=== PATIENT | female | born 2000 | race Two or more races ===

== ENCOUNTER 2019-05-12 12:56 | Emergency (ER) | payer OTHER, SELFPAY ==
[2019-05-12 13:06] VITALS: BP 117/77; PULSE 123; RESP 16; TEMP 38.2; O2SAT 100
--- NOTE | 2019-05-12 14:02 | ED.GENADULT ---
HPI - General Adult General Chief complaint: Upper Respiratory Infection Stated complaint: SORE THROAT/BODY ACHES/FEVER/CHILLS Time Seen by Provider: 05/12/19 14:02 Source: patient and RN notes reviewed Mode of arrival: ambulatory Limitations: no limitations History of Present Illness HPI narrative: This is a 18 years old female presented office for evaluation of flu symptoms since this morning. Symptom began last night with feverish and aching. She went to work this morning but she has to eave early because she does not felt well. Symptoms include sore throat, headache, and achy. She did not receive influenza vaccine. Denies sick contact. No treatment prior to arrival. Related Data Home Medications Medication Instructions Recorded Confirmed No Home Medications 05/12/19 05/12/19 Allergies Allergy/AdvReac Type Severity Reaction Status Date / Time No Known Allergies Allergy Unverified 05/12/19 13:04 Review of Systems Review of Systems: Narrative: CONSTITUTIONAL: Reports fever, chills, sweats. ENT: Denies ears pain CARDIOVASCULAR: Denies chest pain RESPIRATORY: Denies dyspnea, wheezing. Reports a little cough GASTROINTESTINAL: Denies abdominal pain, nausea, vomiting, diarrhea. GENITOURINARY: Denies urinary symptoms or discharge SKIN: Denies rash MUSCULOSKELETAL: Denies acute back pain NEUROLOGIC: Denies lightheaded. Reports headache PMFSH Social History Social History Smoking status: Never smoker Alcohol intake: never Comments At time of signature, I agree with nursing past medical, surgical, social and family history. There is no relevant family history pertinent to the presenting complaint. Exam Narrative: Exam Narrative: GENERAL: This is a well-nourished, well-developed patient, in no apparent distress. EARS: External ears normal, auditory canals clear and without drainage, TMs normal without perforation. Hearing grossly intact. NOSE: External nose normal with no obvious nasal discharge, nares without redness, no rhinorrhea. THROAT: Mucous membranes moist, posterior pharynx clear. NECK: Neck supple, non-tender without lymphadenopathy, masses or thyromegaly. CARDIOVASCULAR: Regular rate and rhythm without murmurs, gallops, or rubs. RESPIRATORY: Clear to auscultation. Breath sounds equal bilaterally. No wheezes, rales, or rhonchi. GASTROINTESTINAL: Abdomen soft, non-tender, nondistended. Bowel sounds are active. No hepato-splenomegaly, or palpable masses. No guarding. SKIN: warm, intact with no suspicious lesions or rash, good texture and turgor. NEURO: awake, alert, and oriented to person, place and time. There were no obvious focal neurologic abnormalities. Steady gait Stephenson Coma Scale Eye Opening: Spontaneous 4 Stephenson Coma Scale Motor: Obeys Commands 6 Stephenson Coma Scale Verbal: Oriented 5 Course Vital Signs Vital signs: Vital Signs Temperature 100.7 F H 05/12/19 13:06 Pulse Rate 123 H 05/12/19 13:06 Respiratory Rate 16 05/12/19 13:06 Blood Pressure 117/77 05/12/19 13:06 Pulse Oximetry 100 05/12/19 13:06 Temperature 100.7 F H 05/12/19 13:06 Pulse Rate 123 H 05/12/19 13:06 Respiratory Rate 16 05/12/19 13:06 Blood Pressure 117/77 05/12/19 13:06 Pulse Oximetry 100 05/12/19 13:06 Medical Decision Making MDM Narrative Medical decision making narrative: Discharge instructions reviewed with patient, as well as provided in writing per nursing staff. The instructions also include specific and strict return/GO TO THE ER as well as f/u information. All questions have been answered, and the patient and mother deny any further questions with discharge and discharge plan. Differential Diagnosis Differential Diagnosis: pneumonia, Allergic Rhinitis, Upper respiratory cough syndrome, Pharyngitis, Sinusitis, Bronchitis, otitis media, viral URI, Asthma/reactive airway disease, influenza Medical Records Medical
== END 2019-05-12 14:12 | disposition home or self-care (01) ==
PROVIDERS: Emergency Provider Nurse Practitioner; PCP Pediatrics
DX: J06.9 Acute upper respiratory infection, unspecified (principal)
CPT/HCPCS: 87804; 99212; G0463